=== PATIENT | female | born 1950 | race Caucasian/White ===

== ENCOUNTER 2020-07-09 09:06 | Outpatient (CLI) | payer MEDICARE, OTHER, SELFPAY ==
[2020-07-09 09:39] LABS: Basophils % 0.5 %; Eosinophils # 0.3 10^3/uL (0.0-0.8); Eosinophils % 2.8 %; Hemoglobin 10.1 g/dL (11.5-15.3); Lymphocytes # 1.5 10^3/uL (0.8-4.8); Lymphocytes % 17.3 %; Mean Corpuscular HGB Conc 29.7 g/dL (30.0-36.0); Mean Corpuscular Hemoglobin 27.5 pg (28.0-34.0); Mean Corpuscular Volume 92.6 fL (81-99); Mean Platelet Volume 8.9 fL (7.4-10.4); Monocytes # 0.9 10^3/uL (0.2-0.9); Monocytes % 10.1 %; Neutrophils # 6.09 10^3/uL (1.8-7.7); Neutrophils % 68.6 %; Nucleated Red Blood Cells % 0 %; Platelet Count 292 10^3/cmm (130-400); Red Blood Count 3.67 10^6/uL (4.1-5.3); Red Cell Distribution Width 16.4 % (12.1-15.1); White Blood Count 8.9 10^3/uL (4.0-10.0)
--- NOTE | 2020-07-09 13:15 | ONC CON_ITS ---
Dr. Kaufman New Patient Note Patient: Martha Bee Unit #: [id number]: 1950 Dicatated By: Zach Kaufman M.D.Date of Visit: Jul 09, 2020 Onc MED New Patient/Consult Referring Physician: Benjie ZAMORA History of Present Illness: Ms. Martha Bee, is a 70-year-old female with history of anemia diagnosed in 1972, at that time, as per patient, she was found to have low B12, she was given B12 supplement with that her anemia did resolve and in 1975 she underwent abdominal exploratory surgery for abdominal pain at [place], as per patient, she was given blood transfusion that time. Since then no history of anemia until recently, when on June 14, 2020 she went to see her PMD with progressive generalized weakness and fatigue, initially thought it was due to diabetes but her lab work-up done on that day showed hemoglobin 9.5 g hematocrit 29.9 g with MCV 88.7 white blood count 9.4 and platelets 263,000 iron studies were done which showed iron saturation 12% and total iron 44, both were low and ferritin was 49 TIBC 360 and her creatinine was 1.10 Patient denies any jaundice patient denies any urine or stool color changes patient denies any melena or hematochezia patient denies any hemoptysis or hematemesis, patient denies any night sweats peripheral lymphadenopathy or weight loss. Patient said she underwent follow-up colonoscopy about a year ago in [facility], as per patient it was unremarkable and never had a EGD done before. Patient denies any palpitation or chest pain at rest patient is on home oxygen. Patient denies any lightheadedness or dizziness but dyspnea on exertion and generalized weakness and fatigue. Past Medical History: Ms. Nietos medical history consists of chronic kidney disease (stage III), chronic obstructive pulmonary disease, congestive heart failure, hyperlipidemia, hypertension, insomnia, and type II diabetes. Past Surgical History: Ms. Nguyen surgical/procedural history consists of caesarean section, cholecystectomy, hernia repair - X 3, and STENT PLACEMENT. Medications: Albuterol Sulfate 1 Puff(s) (of (2.5 mg/3ml) 0.083%) Nebulization solution Inhalation q 6 hours PRN, Aspirin 1 Tablet (of 81 mg) Tablet, enteric coated Oral daily, Brilinta 1 Tablet (of 90 mg) Oral b.i.d., Coenzyme Q10 1 Capsule Oral daily, Furosemide 1 Tablet (of 40 mg) Oral daily, Gabapentin 1.5 Tablet (of 800 mg) Oral t.i.d., Glimepiride 1 Tablet (of 1 mg) Oral daily, Lantus 34 Units (of 100 Units/mL) Subcutaneous b.i.d., L-Cysteine 1 Tablet (of 500 mg) Oral daily, Lisinopril 0.5 Tablet (of 5 mg) Oral daily, Metoprolol Succinate ER 1 Tablet (of 25 mg) Tablet SR 24 HR Oral daily, Multivitamin 1 Tablet Oral daily, Rosuvastatin Calcium 1 Tablet (of 40 mg) Oral daily Allergies: No Known Allergies. Social History: Ms. Bee is . Ms. Bee has never smoked. She has no history of drinking. Family History: Ms. Bee's mother at age 79: Alzheimer's disease, and heart disease. Ms. Bee's father at age 84: hypertension, and type II diabetes. Ms. Bee has 1 brother who is alive: diabetes. She has 1 sister who is alive. Review Of Symptoms: Constitutional - Appetite is good and weight is stable. No fever, night sweats, or hot flashes. Energy level is poor, ENMT - Positive for sinus congestion/drainage. No mouth sores. No sore throat or difficulty swallowing, Hematologic/Lymphatic - Positive for easy bruising, Respiratory - Positive for shortness of breath. No cough. No pleuritic pain or hemoptysis, Cardiovascular - No angina pain. No palpitations, Gastrointestinal - No nausea or vomiting. No heartburn or acid reflux. No diarrhea. Positive for constipation. No blood in the stool or black stools, Genitourinary (F) - No dysuria or hematuria. Positive for urinary frequency. No urgency or incontinence, Musculoskeletal - No joint or bone pain, Neurologic - No headache or dizziness. Positive for numbness and tingling. No other focal neurologic symptoms, Psychiatric - No anxiety or depression. No insomnia. Vital Signs: Performed on Jul 09, 2020 11:27: 0, 31.09 (HIGH), 1.78 sq.m, 62.00 in, 98 %, 70 /min, 24 /min, 122/54 mm(hg), 98.0 F (LOW), and 170.0 lbs (HIGH). Performance Status: 1 - No physically strenuous activity, but ambulatory and able to carry out light or sedentary work (e.g. office work, light house work). (ECOG) Physical Examination: ENMT - No mouth sores, no thrush, no jaundice, no peripheral lymphadenopathy, Respiratory - Poor air entry otherwise clear, Cardiovascular - Regular rate and rhythm of heart, Abdomen - Soft, bowel sounds present, Extremities - 1+ edema bilaterally. Lab/Imaging: Most recent lab results are not available for this patient. Impression: Normocytic, hypochromic anemia etiology unclear could be multifactorial including combined iron deficiency/B12 deficiency due to malabsorption or chronic blood loss or anemia of chronic disease, patient has mild renal insufficiency, considering her age underlying myelodysplasia cannot be ruled out History of B12 deficiency anemia diagnosed in 1972, as per patient with B12 supplement it did resolve History of blood transfusion during abdominal surgery in 1975. Diabetes mellitus Diabetic neuropathy involving lower extremities On home oxygen Mild renal insufficiency Plan: Discussed with patient regarding her labs white blood count 8.9 hemoglobin 10.1 hematocrit 34 platelets 292,000 MCV 92.6 Clinically, patient is doing reasonably well with mild to moderate symptoms like generalized weakness and fatigue which is probably multifactorial, her initial anemia work-up done by her PMD showed iron deficiency. And B12 level was not checked, at this point we will consider checking her B12 level, if low consider supplement in the meantime we will prescribe her oral iron supplement which she will take twice a day in the meantime continue with [id number] multivitamin. We will also refer her for EGD to complete GI evaluation as colonoscopy done last year was unremarkable [place] [facility] [place] And then she will return to clinic in 1 month with CBC and iron studies and if there is no improvement in her iron stores, will consider parenteral iron. If she has persistent or progressive iron deficiency, despite of parenteral iron and EGD is normal, in that case we will consider capsule endoscopy to rule out small bowel AVMs, on the other hand if iron studies improve and she has persistent anemia, will consider bone marrow evaluation to rule out myelodysplasia or other marrow abnormality. Also check TSH as hypothyroidism can cause anemia as well as generalized weakness and fatigue. Signed By: Zach Kaufman M.D. <<Signature on File>>
[2020-07-10 09:35] LABS: Vitamin B12 1583 pg/mL (232-1245)
== END 2020-07-09 09:07 | disposition home or self-care (01) ==
LOC: ONCMED 09:07
PROVIDERS: PCP Nurse Practitioner Family; Visit Provider Internal Medicine Hematology & Oncology
DX: D50.9 Iron deficiency anemia, unspecified (principal); E11.9 Type 2 diabetes mellitus without complications; N18.3 Chronic kidney disease, stage 3 (moderate); E78.5 Hyperlipidemia, unspecified; I50.9 Heart failure, unspecified; I11.0 Hypertensive heart disease with heart failure; J44.9 Chronic obstructive pulmonary disease, unspecified
CPT/HCPCS: 82607; 84443; 85025; 99203

== ENCOUNTER 2020-08-20 11:05 | Outpatient (CLI) | payer MEDICARE, OTHER, SELFPAY ==
[2020-08-20 11:31] LABS: Basophils # 0.1 10^3/uL (0.0-0.1); Basophils % 0.4 %; Eosinophils # 0.3 10^3/uL (0.0-0.8); Eosinophils % 2.2 %; Hematocrit 37.7 % (37.0-47.0); Hemoglobin 11.1 g/dL (11.5-15.3); Lymphocytes # 2.3 10^3/uL (0.8-4.8); Lymphocytes % 17.9 %; Mean Corpuscular HGB Conc 29.4 g/dL (30.0-36.0); Mean Corpuscular Hemoglobin 27.7 pg (28.0-34.0); Mean Platelet Volume 9.2 fL (7.4-10.4); Monocytes % 7.9 %; Neutrophils # 9.15 10^3/uL (1.8-7.7); Neutrophils % 70.9 %; Nucleated Red Blood Cells % 0 %; Platelet Count 291 10^3/cmm (130-400); Red Blood Count 4.01 10^6/uL (4.1-5.3); Red Cell Distribution Width 15.2 % (12.1-15.1); White Blood Count 12.9 10^3/uL (4.0-10.0)
[2020-08-20 11:53] LABS: Ferritin 34 ng/mL (15-150); Iron 45 ug/dL (37-145); Percent Saturation 11.7 % (20-50); Total Iron Binding Capacity 382 mcg/dl; Unsaturated Iron Binding 337 ug/dL (112-347)
--- NOTE | 2020-08-20 15:55 | ONC FU_ITS ---
Dr. Kaufman follow up note Patient: Matrha Bee Unit #: [id number]: 1950 Dicatated By: Zach Kaufman M.D.Date of Visit:Aug 20, 2020 Onc Med Follow-up/Prog Note History of Present Illness: Ms. Martha Bee, is a 70-year-old female with history of anemia diagnosed in 1972, at that time, as per patient, she was found to have low B12, she was given B12 supplement with that her anemia did resolve and in 1975 she underwent abdominal exploratory surgery for abdominal pain at [place], as per patient, she was given blood transfusion that time. Since then no history of anemia until recently, when on June 14, 2020 she went to see her PMD with progressive generalized weakness and fatigue, initially thought it was due to diabetes but her lab work-up done on that day showed hemoglobin 9.5 g hematocrit 29.9 g with MCV 88.7 white blood count 9.4 and platelets 263,000 iron studies were done which showed iron saturation 12% and total iron 44, both were low and ferritin was 49 TIBC 360 and her creatinine was 1.10 Patient denies any jaundice patient denies any urine or stool color changes patient denies any melena or hematochezia patient denies any hemoptysis or hematemesis, patient denies any night sweats peripheral lymphadenopathy or weight loss. Patient said she underwent follow-up colonoscopy about a year ago in [facility], as per patient it was unremarkable and never had a EGD done before. Patient denies any palpitation or chest pain at rest patient is on home oxygen. Patient denies any lightheadedness or dizziness but dyspnea on exertion and generalized weakness and fatigue. Came for follow-up, denies any specific complaints, no fever chills, no nausea or vomiting, no diarrhea constipation, overall strength is improving, more energetic, tolerating oral iron well., She is on home oxygen. Medications: Albuterol Sulfate 1 Puff(s) (of (2.5 mg/3ml) 0.083%) Nebulization solution Inhalation q 6 hours PRN, Aspirin 1 Tablet (of 81 mg) Tablet, enteric coated Oral daily, Brilinta 1 Tablet (of 90 mg) Oral b.i.d., Cholecalciferol 1 (1.25 mg ) Tablet Oral q 1 week, Coenzyme Q10 1 Capsule Oral daily, Furosemide 1 Tablet (of 40 mg) Oral daily, Gabapentin 1.5 Tablet (of 800 mg) Oral t.i.d., Glimepiride 1 Tablet (of 1 mg) Oral daily, Lantus 34 Units (of 100 Units/mL) Subcutaneous b.i.d., L-Cysteine 1 Tablet (of 500 mg) Oral daily, Lisinopril 0.5 Tablet (of 5 mg) Oral daily, Metoprolol Succinate ER 1 Tablet (of 25 mg) Tablet SR 24 HR Oral daily, Multivitamin 1 Tablet Oral daily, Rosuvastatin Calcium 1 Tablet (of 40 mg) Oral daily Allergies: No Known Allergies. Review of Systems: Constitutional - Appetite is good and weight is stable. No fever, night sweats, or hot flashes. Energy level is poor, ENMT - Positive for sinus congestion/drainage. No mouth sores. No sore throat or difficulty swallowing, Hematologic/Lymphatic - Positive for easy bruising, Respiratory - Positive for shortness of breath. No cough. No pleuritic pain or hemoptysis, Cardiovascular - No angina pain. No palpitations, Gastrointestinal - No nausea or vomiting. No heartburn or acid reflux. No diarrhea. Positive for constipation. No blood in the stool or black stools, Genitourinary (F) - No dysuria or hematuria. Positive for urinary frequency. No urgency or incontinence, Musculoskeletal - No joint or bone pain, Neurologic - No headache or dizziness. Positive for numbness and tingling. No other focal neurologic symptoms, Psychiatric - No anxiety or depression. No insomnia. Vital Signs: Performed on Aug 20, 2020 12:26 Height - 62.00 in Weight - 171.6 lbs (HIGH) BSA - 1.79 sq.m BMI - 31.39 (HIGH) Temperature - 97.5 F (LOW) Pulse - 83 /min Respiration - 16 /min BP - 150/63 mm(hg) (HIGH) O2 Sat - 98 % Pain - 0 Performance Status: 1 - No physically strenuous activity, but ambulatory and able to carry out light or sedentary work (e.g. office work, light house work). (ECOG) Physical Examination: ENMT - No mouth sores, no thrush, no jaundice, Respiratory - Lungs are clear to auscultation, Cardiovascular - Regular rate and rhythm of heart, Abdomen - Soft, bowel sounds present, Extremities - No visible edema. Lab/Imaging: Test performed on Jul 09, 2020 09:20 TSH 0.50 uIU/mL Vitamin B12 1583 pg/mL WBC 8.9 10 3/uL RBC 3.67 10 6/uL HGB 10.1 g/dL HCT 34.0 % MCV 92.6 fL MCH 27.5 pg MCHC 29.7 g/dL RDW 16.4 % Platelet Count 292 10 3/cmm MPV 8.9 fL Neutrophils 6.09 10 3/uL Lymphocytes 1.5 10 3/uL Monocytes 0.9 10 3/uL Eosinophils 0.3 10 3/uL Basophils 0.0 10 3/uL Neutrophil % 68.6 % Lymphocyte % 17.3 % Monocyte % 10.1 % Eosinophil % 2.8 % Basophils % 0.5 % NRBC % 0 % Impression: Normocytic, hypochromic anemia etiology unclear could be multifactorial including combined iron deficiency/B12 deficiency due to malabsorption or chronic blood loss or anemia of chronic disease, patient has mild renal insufficiency, considering her age underlying myelodysplasia cannot be ruled out History of B12 deficiency anemia diagnosed in 1972, as per patient with B12 supplement it did resolve History of blood transfusion during abdominal surgery in 1975. Diabetes mellitus Diabetic neuropathy involving lower extremities On home oxygen Mild renal insufficiency Plan: Discussed with patient regarding her labs white blood count 12.9 hemoglobin 11.1 hematocrit 37.7 platelets 291,000, ferritin 34, iron 45, B12 1583, TSH 0.50 Clinically, patient is doing well, more energetic, no new signs symptoms, tolerating oral iron well, her follow-up labs shows improvement in her hemoglobin today is 11.1 g compared to 10.1 g on July 09, 2020, her iron stores is also stable, at this point we will continue to monitor her blood counts and she will continue with oral iron and return to clinic in 2 months with CBC and iron studies. Patient had a EGD and colonoscopy done on August 14, 2020 in [facility], as per patient it was unremarkable except couple of polyps were seen in the colon and a biopsy was done and she has follow-up appointment with her physician on September 26, 2020 in the meantime we will obtain records from [facility] and review. Signed By: Zach Kaufman M.D. <<Signature on File>>
== END 2020-08-20 11:06 | disposition home or self-care (01) ==
LOC: ONCMED 11:09
PROVIDERS: PCP Nurse Practitioner Family; Visit Provider Internal Medicine Hematology & Oncology
DX: D50.9 Iron deficiency anemia, unspecified (principal); Z86.39 Personal history of other endocrine, nutritional and metabolic disease; E11.42 Type 2 diabetes mellitus with diabetic polyneuropathy; Z99.81 Dependence on supplemental oxygen; N28.9 Disorder of kidney and ureter, unspecified; Z79.4 Long term (current) use of insulin
CPT/HCPCS: 36415; 82728; 83540; 83550; 85025; G0463

== ENCOUNTER → 2020-10-03 11:10 | Outpatient (BNVA) | payer MEDICARE, OTHER, SELFPAY | PROVIDERS: PCP Nurse Practitioner Family; Visit Provider Nurse Practitioner Women's Health | DX: N95.0 Postmenopausal bleeding (principal) | CPT/HCPCS: 88175 ==

== ENCOUNTER → 2020-10-05 10:48 | Outpatient (BNVA) | payer MEDICARE, OTHER, SELFPAY | PROVIDERS: PCP Nurse Practitioner Family; Visit Provider Nurse Practitioner Women's Health | DX: N95.0 Postmenopausal bleeding (principal) | CPT/HCPCS: 76830 ==

== ENCOUNTER 2020-10-24 11:11 | Outpatient (CLI) | payer MEDICARE, OTHER, SELFPAY ==
[2020-10-24 12:09] LABS: Basophils % 0.4 %; Eosinophils # 0.1 10^3/uL (0.0-0.8); Eosinophils % 1.2 %; Hematocrit 40.7 % (37.0-47.0); Hemoglobin 12.1 g/dL (11.5-15.3); Lymphocytes # 2.2 10^3/uL (0.8-4.8); Mean Corpuscular HGB Conc 29.7 g/dL (30.0-36.0); Mean Corpuscular Hemoglobin 27.3 pg (28.0-34.0); Mean Corpuscular Volume 91.9 fL (81-99); Mean Platelet Volume 9.1 fL (7.4-10.4); Monocytes # 0.7 10^3/uL (0.2-0.9); Monocytes % 7.1 %; Neutrophils % 68.8 %; Nucleated Red Blood Cells % 0 %; Platelet Count 324 10^3/cmm (130-400); Red Blood Count 4.43 10^6/uL (4.1-5.3); Red Cell Distribution Width 15.1 % (12.1-15.1); White Blood Count 10.2 10^3/uL (4.0-10.0)
[2020-10-24 12:47] LABS: Ferritin 71 ng/mL (15-150); Iron 48 ug/dL (37-145); Percent Saturation 12.7 % (20-50); Total Iron Binding Capacity 377 mcg/dl; Unsaturated Iron Binding 329 ug/dL (112-347)
--- NOTE | 2020-10-25 11:37 | ONC FU_ITS ---
Dr. Kaufman follow up note Patient: Martha Bee Unit #: [id number]: 1950 Dicatated By: Zach Kaufman M.D.Date of Visit:Oct 24, 2020 Onc Med Follow-up/Prog Note History of Present Illness: Ms. Martha Bee, is a 70-year-old female with history of anemia diagnosed in 1972, at that time, as per patient, she was found to have low B12, she was given B12 supplement with that her anemia did resolve and in 1975 she underwent abdominal exploratory surgery for abdominal pain at [place], as per patient, she was given blood transfusion that time. Since then no history of anemia until recently, when on June 14, 2020 she went to see her PMD with progressive generalized weakness and fatigue, initially thought it was due to diabetes but her lab work-up done on that day showed hemoglobin 9.5 g hematocrit 29.9 g with MCV 88.7 white blood count 9.4 and platelets 263,000 iron studies were done which showed iron saturation 12% and total iron 44, both were low and ferritin was 49 TIBC 360 and her creatinine was 1.10 Patient denies any jaundice patient denies any urine or stool color changes patient denies any melena or hematochezia patient denies any hemoptysis or hematemesis, patient denies any night sweats peripheral lymphadenopathy or weight loss. Patient said she underwent follow-up colonoscopy about a year ago in [facility], as per patient it was unremarkable and never had a EGD done before. Patient denies any palpitation or chest pain at rest patient is on home oxygen. Patient denies any lightheadedness or dizziness but dyspnea on exertion and generalized weakness and fatigue. Came for follow-up, denies any specific complaints, no fever chills, no nausea or vomiting, no diarrhea constipation as per patient since her last visit, she got infected with COVID-19 but now recovering well., Tolerating oral iron well, no more melena or hematochezia no hemoptysis or hematemesis, no jaundice, no shortness of breath or palpitation at rest but she is on home oxygen. Medications: Albuterol Sulfate 1 Puff(s) (of (2.5 mg/3ml) 0.083%) Nebulization solution Inhalation q 6 hours PRN, Aspirin 1 Tablet (of 81 mg) Tablet, enteric coated Oral daily, Brilinta 1 Tablet (of 90 mg) Oral b.i.d., Cholecalciferol 1 (1.25 mg ) Tablet Oral q 1 week, Coenzyme Q10 1 Capsule Oral daily, Furosemide 1 Tablet (of 40 mg) Oral daily, Gabapentin 1.5 Tablet (of 800 mg) Oral t.i.d., Glimepiride 1 Tablet (of 1 mg) Oral daily, Lantus 34 Units (of 100 Units/mL) Subcutaneous b.i.d., L-Cysteine 1 Tablet (of 500 mg) Oral daily, Lisinopril 0.5 Tablet (of 5 mg) Oral daily, Metoprolol Succinate ER 1 Tablet (of 25 mg) Tablet SR 24 HR Oral daily, Multivitamin 1 Tablet Oral daily, Rosuvastatin Calcium 1 Tablet (of 40 mg) Oral daily Allergies: No Known Allergies. Review of Systems: Review of Systems is not available for this patient. Vital Signs: Performed on Oct 24, 2020 13:16 Height - 62.00 in Weight - 169.3 lbs (LOW) BSA - 1.78 sq.m BMI - 30.97 (HIGH) Temperature - 98.6 F Pulse - 76 /min Respiration - 16 /min BP - 143/67 mm(hg) (HIGH) O2 Sat - 97 % Pain - 0 Performance Status: 1 - No physically strenuous activity, but ambulatory and able to carry out light or sedentary work (e.g. office work, light house work). (ECOG) Physical Examination: ENMT - No mouth sores, no thrush, no jaundice, Respiratory - Poor air entry otherwise clear to auscultation, Cardiovascular - Regular rate and rhythm of heart, Abdomen - Soft, bowel sounds present, Extremities - No visible edema. Lab/Imaging: Test performed on Aug 20, 2020 11:07 Ferritin 34 ng/mL Iron 45 mcg/dL Iron Binding Capacity (TIBC) 382 mcg/dl % Iron Saturation 11.7 % UIBC 337 mcg/dL WBC 12.9 10 3/uL RBC 4.01 10 6/uL HGB 11.1 g/dL HCT 37.7 % MCV 94.0 fL MCH 27.7 pg MCHC 29.4 g/dL RDW 15.2 % Platelet Count 291 10 3/cmm MPV 9.2 fL Neutrophils 9.15 10 3/uL Lymphocytes 2.3 10 3/uL Monocytes 1.0 10 3/uL Eosinophils 0.3 10 3/uL Basophils 0.1 10 3/uL Neutrophil % 70.9 % Lymphocyte % 17.9 % Monocyte % 7.9 % Eosinophil % 2.2 % Basophils % 0.4 % NRBC % 0 % Test performed on Jul 09, 2020 09:20 TSH 0.50 uIU/mL Vitamin B12 1583 pg/mL Impression: Iron deficiency anemia, other possibilities including, considering her age underlying myelodysplasia or anemia of chronic disease cannot be ruled out , Responded well to oral iron History of B12 deficiency anemia diagnosed in 1972, as per patient with B12 supplement it did resolve History of blood transfusion during abdominal surgery in 1975. Diabetes mellitus Diabetic neuropathy involving lower extremities On home oxygen Mild renal insufficiency Plan: Discussed with patient regarding her labs white blood count 10.2 hemoglobin 12.1 hematocrit 40.7 platelets 324,000 iron studies shows iron saturation 12.7% ferritin 71 compared to 34 on August 20, 2020 iron 48, TIBC 377 Clinically, patient doing well, tolerating oral iron well, her follow-up CBC shows significant improvement in her hemoglobin, now her iron deficiency anemia has resolved, but iron studies shows persistent iron deficiency but with some improvement, at this point will increase her oral iron supplement to twice a day and then she will return to clinic in 2 months with CBC and iron studies Mild leukocytosis, with a normal differential, etiology unclear could be due to, medication or subclinical inflammation/infection but follow-up CBC shows improvement so we will continue to monitor if no improvement, will consider flow cytometry to rule out underlying myeloproliferative disorder Signed By: Zach Kaufman M.D. <<Signature on File>>
== END 2020-10-24 11:12 | disposition home or self-care (01) ==
PROVIDERS: PCP Nurse Practitioner Family; Visit Provider Internal Medicine Hematology & Oncology
DX: D50.9 Iron deficiency anemia, unspecified (principal); D72.829 Elevated white blood cell count, unspecified; E11.40 Type 2 diabetes mellitus with diabetic neuropathy, unspecified; N28.9 Disorder of kidney and ureter, unspecified; Z99.81 Dependence on supplemental oxygen
CPT/HCPCS: 36415; 82728; 83540; 83550; 85025; G0463

== ENCOUNTER 2020-12-12 11:03 | Outpatient (CLI) | payer MEDICARE, OTHER, SELFPAY ==
[2020-12-12 11:25] LABS: Basophils % 0.4 %; Eosinophils # 0.2 10^3/uL (0.0-0.8); Eosinophils % 1.5 %; Hematocrit 41.9 % (37.0-47.0); Hemoglobin 12.5 g/dL (11.5-15.3); Lymphocytes # 2.8 10^3/uL (0.8-4.8); Lymphocytes % 26.3 %; Mean Corpuscular HGB Conc 29.8 g/dL (30.0-36.0); Mean Corpuscular Hemoglobin 27.6 pg (28.0-34.0); Mean Corpuscular Volume 92.5 fL (81-99); Mean Platelet Volume 9.1 fL (7.4-10.4); Monocytes # 0.9 10^3/uL (0.2-0.9); Neutrophils # 6.52 10^3/uL (1.8-7.7); Neutrophils % 62.5 %; Nucleated Red Blood Cells % 0 %; Platelet Count 257 10^3/cmm (130-400); Red Blood Count 4.53 10^6/uL (4.1-5.3); Red Cell Distribution Width 16.3 % (12.1-15.1); White Blood Count 10.4 10^3/uL (4.0-10.0)
[2020-12-12 11:45] LABS: Ferritin 37 ng/mL (15-150); Iron 68 ug/dL (37-145); Percent Saturation 17.7 % (20-50); Total Iron Binding Capacity 384 mcg/dl; Unsaturated Iron Binding 316 ug/dL (112-347)
--- NOTE | 2020-12-17 22:22 | ONC FU_ITS ---
Jose Martinez Patient Note Patient: Martha Bee Unit #: [id number]: 1950 Dictated By: Amador ChaudhryDate of Visit: Dec 12, 2020 Onc MED Follow-Up/Prog Note Chief Complaint: Anemia History of Present Illness: Ms. Bee is a 70-year-old female with history of anemia diagnosed in 1972. She reports that at that time, she was found to have low B12. She was given B12 supplement and with that her anemia did resolve. In 1975 she underwent abdominal exploratory surgery for abdominal pain at [place]. She reports that she was given a blood transfusion that time. Since then, she does not report any history of anemia until June 14, 2020. She went to see her PMD with progressive generalized weakness and fatigue. She states she initially thought it was due to diabetes but her lab work-up done on that day showed hemoglobin 9.5 g hematocrit 29.9 g with MCV 88.7 white blood count 9.4 and platelets 263,000 iron studies were done which showed iron saturation 12% and total iron 44, both were low and ferritin was 49 TIBC 360 and her creatinine was 1.10. On diagnosis, Mrs Bee denied any jaundice, urine or stool color changes, melena or hematochezia, hemoptysis or hematemesis. She also denied any night sweats, peripheral lymphadenopathy or weight loss. Patient said she underwent follow-up colonoscopy about a year ago in [facility], as per patient it was unremarkable and never had a EGD done before. Mrs. Bee was seen on October 24, [address] Kaufman for iron deficiency anemia. Her iron saturation at that time was 12.7% and ferritin was 71 compared to 31 on August 20, 2020. She was on oral iron supplements at that time. Her hemoglobin had improved as well and she was tolerating oral iron well. It was noted that she did have mild leukocytosis with a normal differential with unknown etiology. Dr. Kaufman recommended following the CBC as long as it was showing improvement if no improvement, we would need to consider flow cytometry to rule out underlying myeloproliferative disorder. Ms. Bee is here today for follow-up. She states overall she feels she is doing good. She states her breathing is about the same as always it is no worse. She continues to use home oxygen. She states she is taking 2 iron tablets daily and seems to be tolerating this well. She states her stools are firm and hard at times but that is improved with Metamucil. She states they are black from the iron supplements. She reports that she did have Covid and was diagnosed on 10/11/2020. She states that she did not require hospitalization and tolerated it relatively well. She did have follow-up with cardiology 2 weeks ago. She denies any chest pain or palpitations. She denies any cough. She has had no hemoptysis. She denies any fever or chills. She is had no night sweats. She denies any recent weight loss. She states overall she is doing well. She denies any bright red blood with stools. She had no other evidence of bleeding. Her ECOG is 1. Past Medical History: Chronic kidney disease (stage III) Chronic obstructive pulmonary disease Congestive heart failure Hyperlipidemia Hypertension Insomnia Type II diabetes COVID 19 + in 2019 Past Surgical History: Caesarean section Cholecystectomy Hernia repair - X 3 STENT PLACEMENT Allergies: No Known Allergies. Medications: Albuterol Sulfate 1 Puff(s) (of (2.5 mg/3ml) 0.083%) Nebulization solution Inhalation q 6 hours PRN Aspirin 1 Tablet (of 81 mg) Tablet, enteric coated Oral daily Brilinta 1 Tablet (of 90 mg) Oral b.i.d. Cholecalciferol 1 (1.25 mg ) Tablet Oral q 1 week Coenzyme Q10 1 Capsule Oral daily Furosemide 1 Tablet (of 40 mg) Oral daily Gabapentin 1.5 Tablet (of 800 mg) Oral t.i.d. Glimepiride 1 Tablet (of 1 mg) Oral daily Lantus 34 Units (of 100 Units/mL) Subcutaneous b.i.d. L-Cysteine 1 Tablet (of 500 mg) Oral daily Lisinopril 0.5 Tablet (of 5 mg) Oral daily Metoprolol Succinate ER 1 Tablet (of 25 mg) Tablet SR 24 HR Oral daily Multivitamin 1 Tablet Oral daily Rosuvastatin Calcium 1 Tablet (of 40 mg) Oral daily Family History: Ms. Bee's mother at age 79: Alzheimer's disease, and heart disease. Ms. Bee's father at age 84: hypertension, and type II diabetes. Ms. Bee has 1 brother who is alive: diabetes. She has 1 sister who is alive. Social History: Ms. Bee is . Ms. Bee has never smoked. She has no history of drinking. Review Of Symptoms: Constitutional Denies fevers, chills, night sweats, excessive fatigue or weight loss. Allergic/Immunologic No reactions. Eyes Denies significant visual changes. No diplopia. No amaurosis. ENMT Denies changes in hearing, sore throat, mouth sores, difficulty or changes in swallowing ability, and/or sinus drainage. Hematologic/Lymphatic Denies easy bruising or bleeding. The patient denies any tender or palpable lymph nodes. Respiratory Denies dyspnea on exertion, chest pain, cough or hemoptysis. Denies orthopnea. Cardiovascular Denies anginal chest pain, palpitations or orthopnea. Gastrointestinal Denies nausea, vomiting, diarrhea, GI bleeding. Denies change in bowel habits and/or stool color, no heartburn or early satiety. She states she has intermittent firm/hard stools but is improved with use of Metamucil. She does have black stools from using oral iron supplements. Genitourinary (F) No hematuria, hesitancy, incontinence, vaginal bleeding, discharge or other problems with urination. Musculoskeletal Denies joint pain, swelling or redness. No decreased range of motion. Integumentary Denies chronic rashes, inflammation, ulcerations or skin changes. Neurologic Denies headache, blurred vision, and no areas of focal weakness or numbness. Normal gait. No sensory problems. Psychiatric Denies insomnia, depression, braulio or mood swings. Vital Signs: Performed on Dec 12, 2020 12:34 Height - 62.00 in Weight - 175.6 lbs (HIGH) BSA - 1.81 sq.m BMI - 32.12 (HIGH) Temperature - 98.2 F (LOW) Pulse - 88 /min Respiration - 16 /min BP - 144/63 mm(hg) (HIGH) O2 Sat - 94 % (LOW) Pain - 0,1 - No physically strenuous activity, but ambulatory and able to carry out light or sedentary work (e.g. office work, light house work). (ECOG) Physical Examination: Constitutional Alert, oriented, no acute distress. Skin pink, warm and dry. Head Normocephalic; atraumatic. Eyes Conjunctivae and sclerae are clear and without icterus. Pupils are reactive and equal. Neck Supple without masses or thyromegaly. No jugular venous distension. Hematologic/Lymphatic No petechiae or purpura. No tender or palpable lymph nodes in the cervical or supraclavicular areas. Respiratory Lungs are clear to auscultation without rhonchi or wheezing. Cardiovascular Regular rate and rhythm of heart without murmurs,clicks, gallops or rubs. Abdomen Non-tender, non-distended, no masses or ascites. Good bowel sounds noted in all quads. No guarding or rebound tenderness. No pulsatile masses. Back/Spine Non-tender to palpation. Extremities No visible deformities, no cyanosis, clubbing or edema. Musculoskeletal No tenderness or swelling, normal range of motion without obvious weakness. Integumentary No rashes or lesions. Neurologic No sensory or motor deficits, normal cerebellar function, normal gait. Psychiatric Alert and oriented times three. Coherent speech. Verbalizes understanding of our discussions today. Laboratory:Test performed on Dec 12, 2020 11:14 Ferritin 37 ng/mL Iron 68 mcg/dL Iron Binding Capacity (TIBC) 384 mcg/dl % Iron Saturation 17.7 % UIBC 316 mcg/dL WBC 10.4 10 3/uL RBC 4.53 10 6/uL HGB 12.5 g/dL HCT 41.9 % MCV 92.5 fL MCH 27.6 pg MCHC 29.8 g/dL RDW 16.3 % Platelet Count 257 10 3/cmm MPV 9.1 fL Neutrophils 6.52 10 3/uL Lymphocytes 2.8 10 3/uL Monocytes 0.9 10 3/uL Eosinophils 0.2 10 3/uL Basophils 0.0 10 3/uL Neutrophil % 62.5 % Lymphocyte % 26.3 % Monocyte % 9.0 % Eosinophil % 1.5 % Basophils % 0.4 % NRBC % 0 % Impression: Iron deficiency anemia, other possibilities including, considering her age underlying myelodysplasia or anemia of chronic disease cannot be ruled out , Responded well to oral iron History of B12 deficiency anemia diagnosed in 1972, as per patient with B12 supplement it did resolve History of blood transfusion during abdominal surgery in 1975. Diabetes mellitus Diabetic neuropathy involving lower extremities On home oxygen Mild renal insufficiency Plan: PROBLEMS ADDRESSED TODAY 1. Iron deficiency anemia A. Today's labs reviewed in detail and discussed with Ms. Bee and a copy was given to her. WBC 10.4, hemoglobin 12.5, platelets 257,000 ANC 6520 iron saturation is improved at 17.7% was 12.7% on March 24, 2021. Her ferritin is 37 iron is 68 which is improved from 48 in October 2020. B. We will have her continue her iron tablets at 2 daily, but she can try increasing to 3 daily if she would like, but I feel that this is unlikely for her to tolerate it as she is already having firm/hard stools although currently they are resolved with Metamucil. C. We will plan to have her return in 1 month for follow-up with CBC CMP and iron studies. D. Mrs. Bee has been encouraged to contact us in the interim should questions or problems arise. Signed By: Amador Chaudhry-, [facility] Zach Kaufman MD <<Signature on File>>
== END 2020-12-12 11:04 | disposition home or self-care (01) ==
LOC: ONCMED 11:05
PROVIDERS: PCP Nurse Practitioner Family; Visit Provider Nurse Practitioner
DX: D50.9 Iron deficiency anemia, unspecified (principal); E11.40 Type 2 diabetes mellitus with diabetic neuropathy, unspecified; Z99.81 Dependence on supplemental oxygen; N28.9 Disorder of kidney and ureter, unspecified
CPT/HCPCS: 82728; 83540; 83550; 85025; 99214

== ENCOUNTER 2021-01-14 12:44 | Outpatient (CLI) | payer MEDICARE, OTHER, SELFPAY ==
[2021-01-14 13:38] LABS: Basophils % 0.5 %; Eosinophils # 0.4 10^3/uL (0.0-0.8); Eosinophils % 4.8 %; Hemoglobin 12.9 g/dL (11.5-15.3); Lymphocytes # 2.3 10^3/uL (0.8-4.8); Mean Corpuscular Hemoglobin 28.9 pg (28.0-34.0); Mean Corpuscular Volume 96.2 fL (81-99); Mean Platelet Volume 9.5 fL (7.4-10.4); Monocytes # 0.9 10^3/uL (0.2-0.9); Monocytes % 10.2 %; Neutrophils # 4.76 10^3/uL (1.8-7.7); Neutrophils % 57.1 %; Nucleated Red Blood Cells % 0 %; Platelet Count 262 10^3/cmm (130-400); Red Blood Count 4.47 10^6/uL (4.1-5.3); Red Cell Distribution Width 15.7 % (12.1-15.1); White Blood Count 8.3 10^3/uL (4.0-10.0)
[2021-01-14 14:21] LABS: Alanine Aminotransferase 22 U/L (0-33); Albumin Level 4.4 g/dL (3.5-5.2); Alkaline Phosphatase 74 IU/L (35-105); Anion Gap 13.7 (5-19); Aspartate Amino Transferase 18 U/L (0-32); Blood Urea Nitrogen 34 mg/dL (8-23); Calcium 11.2 mg/dL (8.5-10.5); Carbon Dioxide 37 mmol/L (22-29); Chloride 94 mmol/L (98-107); Ferritin 72 ng/mL (15-150); Globulin 3.6 g/dL (1.3-4.6); Glomerular Filtration Rate 71.3 mL/min (90-130); Glucose 127 mg/dL (65-115); Iron 52 ug/dL (37-145); Osmolality Calculated 301 mOsm/kg (285-295); Percent Saturation 15.2 % (20-50); Potassium 3.7 mmol/L (3.5-5.1); Sodium 141 mmol/L (136-145); Total Bilirubin 0.4 mg/dL (0.15-1.2); Total Iron Binding Capacity 340 mcg/dl; Unsaturated Iron Binding 288 ug/dL (112-347)
--- NOTE | 2021-01-14 15:22 | ONC FU_ITS ---
Dr. Kaufman follow up note Patient: Martha Bee Unit #: [id number]: 1950 Dicatated By: Zach Kaufman M.D.Date of Visit:Jan 14, 2021 Onc Med Follow-up/Prog Note History of Present Illness: Ms. Bee is a 70-year-old female with history of anemia diagnosed in 1972. She reports that at that time, she was found to have low B12. She was given B12 supplement and with that her anemia did resolve. In 1975 she underwent abdominal exploratory surgery for abdominal pain at [place]. She reports that she was given a blood transfusion that time. Since then, she does not report any history of anemia until June 14, 2020. She went to see her PMD with progressive generalized weakness and fatigue. She states she initially thought it was due to diabetes but her lab work-up done on that day showed hemoglobin 9.5 g hematocrit 29.9 g with MCV 88.7 white blood count 9.4 and platelets 263,000 iron studies were done which showed iron saturation 12% and total iron 44, both were low and ferritin was 49 TIBC 360 and her creatinine was 1.10. On diagnosis, Mrs Bee denied any jaundice, urine or stool color changes, melena or hematochezia, hemoptysis or hematemesis. She also denied any night sweats, peripheral lymphadenopathy or weight loss. Patient said she underwent follow-up colonoscopy about a year ago in [facility], as per patient it was unremarkable and never had a EGD done before. Mrs. Bee was seen on October 24, 2020 for iron deficiency anemia. Her iron saturation at that time was 12.7% and ferritin was 71 compared to 31 on August 20, 2020. She was on oral iron supplements at that time. Her hemoglobin had improved as well and she was tolerating oral iron well. Came for follow-up, denies any specific complaints, no fever chills, no nausea or vomiting, no diarrhea constipation, tolerating oral iron well. Medications: Albuterol Sulfate 1 Puff(s) (of (2.5 mg/3ml) 0.083%) Nebulization solution Inhalation q 6 hours PRN, Aspirin 1 Tablet (of 81 mg) Tablet, enteric coated Oral daily, Brilinta 1 Tablet (of 90 mg) Oral b.i.d., Cholecalciferol 1 (1.25 mg ) Tablet Oral q 1 week, Coenzyme Q10 1 Capsule Oral daily, Furosemide 1 Tablet (of 40 mg) Oral daily, Gabapentin 1.5 Tablet (of 800 mg) Oral t.i.d., Glimepiride 1 Tablet (of 1 mg) Oral daily, Lantus 34 Units (of 100 Units/mL) Subcutaneous b.i.d., L-Cysteine 1 Tablet (of 500 mg) Oral daily, Lisinopril 0.5 Tablet (of 5 mg) Oral daily, Metoprolol Succinate ER 1 Tablet (of 25 mg) Tablet SR 24 HR Oral daily, Multivitamin 1 Tablet Oral daily, Rosuvastatin Calcium 1 Tablet (of 40 mg) Oral daily Allergies: No Known Allergies. Review of Systems: Review of Systems is not available for this patient. Vital Signs: Performed on Jan 14, 2021 14:50 Height - 62.00 in Weight - 178 lbs (HIGH) BSA - 1.82 sq.m BMI - 32.56 (HIGH) Temperature - 98.0 F (LOW) Pulse - 80 /min Respiration - 18 /min BP - 149/54 mm(hg) (HIGH) O2 Sat - 94 % (LOW) Pain - 6 Performance Status: 1 - No physically strenuous activity, but ambulatory and able to carry out light or sedentary work (e.g. office work, light house work). (ECOG) Physical Examination: ENMT - No mouth sores, no thrush, no jaundice, Respiratory - Lungs are clear to auscultation, Cardiovascular - Regular rate and rhythm of heart, Abdomen - Soft, bowel sounds present, Extremities - No visible edema. Lab/Imaging: Test performed on Dec 12, 2020 11:14 Ferritin 37 ng/mL Iron 68 mcg/dL Iron Binding Capacity (TIBC) 384 mcg/dl % Iron Saturation 17.7 % UIBC 316 mcg/dL WBC 10.4 10 3/uL RBC 4.53 10 6/uL HGB 12.5 g/dL HCT 41.9 % MCV 92.5 fL MCH 27.6 pg MCHC 29.8 g/dL RDW 16.3 % Platelet Count 257 10 3/cmm MPV 9.1 fL Neutrophils 6.52 10 3/uL Lymphocytes 2.8 10 3/uL Monocytes 0.9 10 3/uL Eosinophils 0.2 10 3/uL Basophils 0.0 10 3/uL Neutrophil % 62.5 % Lymphocyte % 26.3 % Monocyte % 9.0 % Eosinophil % 1.5 % Basophils % 0.4 % NRBC % 0 % Impression: Iron deficiency anemia, other possibilities including, considering her age underlying myelodysplasia or anemia of chronic disease cannot be ruled out , Responded well to oral iron History of B12 deficiency anemia diagnosed in 1972, as per patient with B12 supplement it did resolve History of blood transfusion during abdominal surgery in 1975. Diabetes mellitus Diabetic neuropathy involving lower extremities On home oxygen Mild renal insufficiency Plan: Discussed with patient regarding her labs white blood count 8.3 compared to 10.4 earlier hemoglobin 12.9 g compared to 12.5 g previously hematocrit 43 platelets 262,000 CMP within normal limit except calcium 11.2 normal being less than 10.5 alk phos 74, iron studies shows iron saturation 15.2% ferritin 72 compared to 37 on December 12, 2020 ,iron 62 Clinically, patient is doing well, her follow-up labs shows hemoglobin in normal range and improving along with iron stores, patient is tolerating oral iron well, will continue with twice a day for another 2 months and then return to clinic in 2 months with CBC and iron studies and calcium level as her CMP showed mildly elevated calcium, patient on multivitamin which contain calcium so she was advised to stop it, a follow-up was labs shows persistent hypercalcemia, will consider work-up. As for the mild leukocytosis is concerned , now resolved, will continue to monitor Signed By: Zach Kaufman M.D. <<Signature on File>>
== END 2021-01-14 12:45 | disposition home or self-care (01) ==
LOC: ONCMED 12:48
PROVIDERS: PCP Nurse Practitioner Family; Visit Provider Internal Medicine Hematology & Oncology
DX: D50.9 Iron deficiency anemia, unspecified (principal); E11.41 Type 2 diabetes mellitus with diabetic mononeuropathy; N28.9 Disorder of kidney and ureter, unspecified; E83.52 Hypercalcemia; Z99.81 Dependence on supplemental oxygen
CPT/HCPCS: 80053; 82728; 83540; 83550; 85025; 99214

== ENCOUNTER 2021-03-15 08:10 | Outpatient (CLI) | payer MEDICARE, OTHER, SELFPAY ==
[2021-03-15 08:39] LABS: Basophils # 0.1 10^3/uL (0.0-0.1); Basophils % 0.6 %; Eosinophils # 0.2 10^3/uL (0.0-0.8); Eosinophils % 2.4 %; Hematocrit 41.9 % (37.0-47.0); Hemoglobin 12.7 g/dL (11.5-15.3); Lymphocytes # 2.1 10^3/uL (0.8-4.8); Mean Corpuscular HGB Conc 30.3 g/dL (30.0-36.0); Mean Corpuscular Hemoglobin 29.5 pg (28.0-34.0); Mean Corpuscular Volume 97.2 fL (81-99); Mean Platelet Volume 9.6 fL (7.4-10.4); Monocytes % 10.1 %; Neutrophils # 6.47 10^3/uL (1.8-7.7); Neutrophils % 65.3 %; Nucleated Red Blood Cells % 0 %; Platelet Count 220 10^3/cmm (130-400); Red Blood Count 4.31 10^6/uL (4.1-5.3); Red Cell Distribution Width 14.5 % (12.1-15.1); White Blood Count 9.9 10^3/uL (4.0-10.0)
[2021-03-15 09:00] LABS: Calcium 9.5 mg/dL (8.5-10.5)
[2021-03-15 09:23] LABS: Iron 75 ug/dL (37-145); Percent Saturation 20.3 % (20-50); Total Iron Binding Capacity 369 mcg/dl; Unsaturated Iron Binding 294 ug/dL (112-347)
--- NOTE | 2021-03-15 10:19 | ONC FU_ITS ---
Dr. Kaufman follow up note Patient: Martha Bee Unit #: [id number]: 1950 Dicatated By: Zach Kaufman M.D.Date of Visit:March 15, 2021 Onc Med Follow-up/Prog Note History of Present Illness: Ms. Bee is a 70-year-old female with history of anemia diagnosed in 1972. She reports that at that time, she was found to have low B12. She was given B12 supplement and with that her anemia did resolve. In 1975 she underwent abdominal exploratory surgery for abdominal pain at [place]. She reports that she was given a blood transfusion that time. Since then, she does not report any history of anemia until June 14, 2020. She went to see her PMD with progressive generalized weakness and fatigue. She states she initially thought it was due to diabetes but her lab work-up done on that day showed hemoglobin 9.5 g hematocrit 29.9 g with MCV 88.7 white blood count 9.4 and platelets 263,000 iron studies were done which showed iron saturation 12% and total iron 44, both were low and ferritin was 49 TIBC 360 and her creatinine was 1.10. On diagnosis, Mrs Bee denied any jaundice, urine or stool color changes, melena or hematochezia, hemoptysis or hematemesis. She also denied any night sweats, peripheral lymphadenopathy or weight loss. Patient said she underwent follow-up colonoscopy about a year ago in [facility], as per patient it was unremarkable and never had a EGD done before. Mrs. Bee was seen on October 24, 2020 for iron deficiency anemia. Her iron saturation at that time was 12.7% and ferritin was 71 compared to 31 on August 20, 2020. She was on oral iron supplements at that time. Her hemoglobin had improved as well and she was tolerating oral iron well. Came for follow-up, denies any specific complaints except chronic arthritis, no melena or hematochezia, no nausea or vomiting, no diarrhea or constipation, no palpitation or shortness of breath at rest patient use home oxygen, tolerating oral iron well. Medications: Albuterol Sulfate 1 Puff(s) (of (2.5 mg/3ml) 0.083%) Nebulization solution Inhalation q 6 hours PRN, Aspirin 1 Tablet (of 81 mg) Tablet, enteric coated Oral daily, Brilinta 1 Tablet (of 90 mg) Oral b.i.d., Cholecalciferol 1 (1.25 mg ) Tablet Oral q 1 week, Coenzyme Q10 1 Capsule Oral daily, Furosemide 1 Tablet (of 40 mg) Oral daily, Gabapentin 1.5 Tablet (of 800 mg) Oral t.i.d., Glimepiride 1 Tablet (of 1 mg) Oral daily, Lantus 34 Units (of 100 Units/mL) Subcutaneous b.i.d., L-Cysteine 1 Tablet (of 500 mg) Oral daily, Lisinopril 0.5 Tablet (of 5 mg) Oral daily, Metoprolol Succinate ER 1 Tablet (of 25 mg) Tablet SR 24 HR Oral daily, Multivitamin 1 Tablet Oral daily, Rosuvastatin Calcium 1 Tablet (of 40 mg) Oral daily Allergies: No Known Allergies. Review of Systems: Review of Systems is not available for this patient. Vital Signs: Performed on March 15, 2021 09:50 Height - 62.00 in Weight - 176.4 lbs (LOW) BSA - 1.81 sq.m BMI - 32.26 (HIGH) Temperature - 97.4 F (LOW) Pulse - 86 /min Respiration - 18 /min BP - 146/74 mm(hg) (HIGH) O2 Sat - 95 % (LOW) Pain - 0 Performance Status: 0 - Fully active, able to carry on all predisease activities without restrictions. (ECOG) Physical Examination: ENMT - No mouth sores, no thrush, no jaundice, Respiratory - Lungs are clear to auscultation, Cardiovascular - Regular rate and rhythm of heart, Abdomen - Soft, bowel sounds present, Extremities - No visible edema or rash. Lab/Imaging: Test performed on Dec 12, 2020 11:14 Ferritin 37 ng/mL Iron 68 mcg/dL Iron Binding Capacity (TIBC) 384 mcg/dl % Iron Saturation 17.7 % UIBC 316 mcg/dL WBC 10.4 10 3/uL RBC 4.53 10 6/uL HGB 12.5 g/dL HCT 41.9 % MCV 92.5 fL MCH 27.6 pg MCHC 29.8 g/dL RDW 16.3 % Platelet Count 257 10 3/cmm MPV 9.1 fL Neutrophils 6.52 10 3/uL Lymphocytes 2.8 10 3/uL Monocytes 0.9 10 3/uL Eosinophils 0.2 10 3/uL Basophils 0.0 10 3/uL Neutrophil % 62.5 % Lymphocyte % 26.3 % Monocyte % 9.0 % Eosinophil % 1.5 % Basophils % 0.4 % NRBC % 0 % Impression: Iron deficiency anemia, other possibilities including, considering her age underlying myelodysplasia or anemia of chronic disease cannot be ruled out , Responded well to oral iron EGD colonoscopy done in [facility], as per patient was unremarkable History of B12 deficiency anemia diagnosed in 1972, as per patient with B12 supplement it did resolve History of blood transfusion during abdominal surgery in 1975. Diabetes mellitus Diabetic neuropathy involving lower extremities On home oxygen Mild renal insufficiency Plan: Discussed with patient regarding her labs white blood count 9.9 hemoglobin 12.7 hematocrit 41.9 platelets 220,000 iron studies shows iron saturation 20.3% iron 75, ferritin is pending Clinically, patient doing well with no new signs symptoms, follow-up labs shows hemoglobin in normal range, iron studies shows iron stores continue to improve on oral iron, which she is tolerating well, will continue with same and return to clinic in 3 months with CBC and iron studies Signed By: Zach Kaufman M.D. <<Signature on File>>
== END 2021-03-15 08:11 | disposition home or self-care (01) ==
LOC: ONCMED 08:14
PROVIDERS: PCP Nurse Practitioner Family; Visit Provider Internal Medicine Hematology & Oncology
DX: D50.9 Iron deficiency anemia, unspecified (principal); D51.9 Vitamin B12 deficiency anemia, unspecified; E11.42 Type 2 diabetes mellitus with diabetic polyneuropathy; E11.22 Type 2 diabetes mellitus with diabetic chronic kidney disease; N18.9 Chronic kidney disease, unspecified; Z99.81 Dependence on supplemental oxygen; Z79.899 Other long term (current) drug therapy
CPT/HCPCS: 82310; 83540; 83550; 85025; 99214

== ENCOUNTER → 2021-03-29 08:18 | Outpatient (BNVA) | payer MEDICARE, OTHER, SELFPAY | PROVIDERS: PCP Nurse Practitioner Family; Referring Provider Nurse Practitioner Family; Visit Provider Anesthesiology Pain Medicine | DX: M16.12 Unilateral primary osteoarthritis, left hip (principal); Z79.891 Long term (current) use of opiate analgesic | CPT/HCPCS: 99203 ==

== ENCOUNTER 2021-06-18 13:58 | Outpatient (CLI) | payer MEDICARE, OTHER, SELFPAY ==
[2021-06-18 14:45] LABS: Basophils % 0.3 %; Eosinophils # 0.2 10^3/uL (0.0-0.8); Eosinophils % 2.1 %; Hematocrit 41.6 % (37.0-47.0); Hemoglobin 12.6 g/dL (11.5-15.3); Lymphocytes # 2.2 10^3/uL (0.8-4.8); Lymphocytes % 24.4 %; Mean Corpuscular HGB Conc 30.3 g/dL (30.0-36.0); Mean Corpuscular Hemoglobin 29.6 pg (28.0-34.0); Mean Corpuscular Volume 97.7 fl (81-99); Mean Platelet Volume 9.4 fL (7.4-10.4); Monocytes # 0.8 10^3/uL (0.2-0.9); Monocytes % 8.4 %; Neutrophils # 5.83 10^3/uL (1.8-7.7); Nucleated Red Blood Cells % 0 %; Platelet Count 250 10^3/cmm (130-400); Red Blood Count 4.26 10^6/uL (4.1-5.3); Red Cell Distribution Width 15.2 % (12.1-15.1); White Blood Count 9.1 10^3/uL (4.0-10.0)
[2021-06-18 15:12] LABS: Ferritin 56 ng/mL (15-150); Iron 50 ug/dL (37-145); Percent Saturation 15.6 % (20-50); Total Iron Binding Capacity 319 mcg/dl; Unsaturated Iron Binding 269 ug/dL (112-347)
--- NOTE | 2021-06-18 17:19 | ONC FU_ITS ---
Dr. Kaufman follow up note Patient: Martha Bee Unit #: [id number]: 1950 Dicatated By: Zach Kaufman M.D.Date of Visit:Jun 18, 2021 Onc Med Follow-up/Prog Note History of Present Illness: Ms. Bee is a 70-year-old female with history of anemia diagnosed in 1972. She reports that at that time, she was found to have low B12. She was given B12 supplement and with that her anemia did resolve. In 1975 she underwent abdominal exploratory surgery for abdominal pain at [place]. She reports that she was given a blood transfusion that time. Since then, she does not report any history of anemia until June 14, 2020. She went to see her PMD with progressive generalized weakness and fatigue. She states she initially thought it was due to diabetes but her lab work-up done on that day showed hemoglobin 9.5 g hematocrit 29.9 g with MCV 88.7 white blood count 9.4 and platelets 263,000 iron studies were done which showed iron saturation 12% and total iron 44, both were low and ferritin was 49 TIBC 360 and her creatinine was 1.10. On diagnosis, Mrs Bee denied any jaundice, urine or stool color changes, melena or hematochezia, hemoptysis or hematemesis. She also denied any night sweats, peripheral lymphadenopathy or weight loss. Patient said she underwent follow-up colonoscopy about a year ago in [facility], as per patient it was unremarkable and never had a EGD done before. Mrs. Bee was seen on October 24, 2020 for iron deficiency anemia. Her iron saturation at that time was 12.7% and ferritin was 71 compared to 31 on August 20, 2020. She was on oral iron supplements at that time. Her hemoglobin had improved as well and she was tolerating oral iron well. Came for follow-up, denies any specific complaint except generalized weakness and fatigue, patient is on gabapentin for lower extremity neuropathy and also taking vitamin B6. And tolerating oral iron 1 tablet a day well. No melena or hematochezia, no hemoptysis hematemesis, no nausea or vomiting, no diarrhea constipation no fever chills, no chest pain or palpitation. Medications: Albuterol Sulfate 1 Puff(s) (of (2.5 mg/3ml) 0.083%) Nebulization solution Inhalation q 6 hours PRN, Aspirin 1 Tablet (of 81 mg) Tablet, enteric coated Oral daily, Brilinta 1 Tablet (of 90 mg) Oral b.i.d., Cholecalciferol 1 (1.25 mg ) Tablet Oral q 1 week, Coenzyme Q10 1 Capsule Oral daily, Furosemide 1 Tablet (of 40 mg) Oral daily, Gabapentin 1.5 Tablet (of 800 mg) Oral t.i.d., Glimepiride 1 Tablet (of 1 mg) Oral daily, Lantus 34 Units (of 100 Units/mL) Subcutaneous b.i.d., L-Cysteine 1 Tablet (of 500 mg) Oral daily, Lisinopril 0.5 Tablet (of 5 mg) Oral daily, Metoprolol Succinate ER 1 Tablet (of 25 mg) Tablet SR 24 HR Oral daily, Multivitamin 1 Tablet Oral daily, Rosuvastatin Calcium 1 Tablet (of 40 mg) Oral daily Allergies: No Known Allergies. Review of Systems: Review of Systems is not available for this patient. Vital Signs: Performed on Jun 18, 2021 16:57 Height - 62.00 in Weight - 173.2 lbs (LOW) BSA - 1.80 sq.m BMI - 31.68 (HIGH) Temperature - 97.6 F (LOW) Pulse - 62 /min Respiration - 18 /min BP - 119/64 mm(hg) O2 Sat - 94 % (LOW) Pain - 0 Fatigue - 7 Performance Status: 1 - No physically strenuous activity, but ambulatory and able to carry out light or sedentary work (e.g. office work, light house work). (ECOG) Physical Examination: ENMT - No mouth sores, no thrush, no jaundice, Respiratory - Poor air entry otherwise clear, Cardiovascular - Regular rate and rhythm of heart, Abdomen - Soft, bowel sounds present, Extremities - No visible edema. Lab/Imaging: Most recent lab results are not available for this patient. Impression: Iron deficiency anemia, other possibilities including, considering her age underlying myelodysplasia or anemia of chronic disease cannot be ruled out , Responded well to oral iron EGD colonoscopy done in [facility], as per patient was unremarkable History of B12 deficiency anemia diagnosed in 1972, as per patient with B12 supplement it did resolve History of blood transfusion during abdominal surgery in 1975. Diabetes mellitus Diabetic neuropathy involving lower extremities Sleep apnea, on CPAP machine/On home oxygen Mild renal insufficiency Plan: Discussed with patient regarding her labs white blood count 9.1 hemoglobin 12.6 hematocrit 41.6 platelets 250,000 iron studies shows iron saturation 15.6% compared to 20.3% previously ferritin 56 iron 50 TIBC 319 Clinically, patient is done well her follow-up labs shows hemoglobin normal range but there is continued drop in her iron stores, patient is on oral iron 1 tablet a day, at this point will increase her oral iron dose to 2 tablets a day and then return to clinic in 3 months with CBC and iron studies. As for generalized weakness and fatigue is concerned probably multifactorial including due to gabapentin, patient will discuss with her PMD regarding dose adjustment if possible, which may improve her generalized weakness and fatigue. Signed By: Zach Kaufman M.D. <<Signature on File>>
== END 2021-06-18 13:59 | disposition home or self-care (01) ==
LOC: ONCMED 14:00
PROVIDERS: PCP Nurse Practitioner Family; Visit Provider Internal Medicine Hematology & Oncology
DX: D50.9 Iron deficiency anemia, unspecified (principal); R53.1 Weakness; R53.81 Other malaise; Z79.899 Other long term (current) drug therapy; Z79.82 Long term (current) use of aspirin
CPT/HCPCS: 36415; 82728; 83540; 83550; 85025; 99214

== ENCOUNTER 2021-09-17 13:18 | Outpatient (CLI) | payer MEDICARE, OTHER, SELFPAY ==
[2021-09-17 14:22] LABS: Basophils % 0.4 %; Eosinophils # 0.2 10^3/uL (0.0-0.8); Eosinophils % 1.6 %; Hematocrit 40.4 % (37.0-47.0); Hemoglobin 12.7 g/dL (11.5-15.3); Lymphocytes # 1.7 10^3/uL (0.8-4.8); Lymphocytes % 16.5 %; Mean Corpuscular HGB Conc 31.4 g/dL (30.0-36.0); Mean Corpuscular Hemoglobin 29.8 pg (28.0-34.0); Mean Corpuscular Volume 94.8 fl (81-99); Mean Platelet Volume 9.5 fL (7.4-10.4); Monocytes # 0.9 10^3/uL (0.2-0.9); Monocytes % 8.6 %; Neutrophils # 7.55 10^3/uL (1.8-7.7); Neutrophils % 72.4 %; Nucleated Red Blood Cells % 0 %; Platelet Count 231 10^3/cmm (130-400); Red Blood Count 4.26 10^6/uL (4.1-5.3); Red Cell Distribution Width 14.6 % (12.1-15.1); White Blood Count 10.4 10^3/uL (4.0-10.0)
[2021-09-17 14:41] LABS: Ferritin 55 ng/mL (15-150); Iron 49 ug/dL (37-145); Percent Saturation 15.3 % (20-50); Total Iron Binding Capacity 319 mcg/dl; Unsaturated Iron Binding 270 ug/dL (112-347)
--- NOTE | 2021-09-17 15:28 | ONC FU_ITS ---
Dr. Kaufman follow up note Patient: Martha Bee Unit #: [id number]: 1950 Dicatated By: Zach Kaufman M.D.Date of Visit:Sep 17, 2021 Onc Med Follow-up/Prog Note History of Present Illness: Ms. Bee is a 71-year-old female with history of anemia diagnosed in 1972. She reports that at that time, she was found to have low B12. She was given B12 supplement and with that her anemia did resolve. In 1975 she underwent abdominal exploratory surgery for abdominal pain at [place]. She reports that she was given a blood transfusion that time. Since then, she does not report any history of anemia until June 14, 2020. She went to see her PMD with progressive generalized weakness and fatigue. She states she initially thought it was due to diabetes but her lab work-up done on that day showed hemoglobin 9.5 g hematocrit 29.9 g with MCV 88.7 white blood count 9.4 and platelets 263,000 iron studies were done which showed iron saturation 12% and total iron 44, both were low and ferritin was 49 TIBC 360 and her creatinine was 1.10. On diagnosis, Mrs Bee denied any jaundice, urine or stool color changes, melena or hematochezia, hemoptysis or hematemesis. She also denied any night sweats, peripheral lymphadenopathy or weight loss. Patient said she underwent follow-up colonoscopy about a year ago in [facility], as per patient it was unremarkable and never had a EGD done before. Mrs. Bee was seen on October 24, 2020 for iron deficiency anemia. Her iron saturation at that time was 12.7% and ferritin was 71 compared to 31 on August 20, 2020. She was on oral iron supplements at that time. Her hemoglobin had improved as well and she was tolerating oral iron well. Came for follow-up, denies any specific complaint except generalized weakness and fatigue but no melena or hematochezia, no hemoptysis or hematemesis, since her last visit she underwent cataract surgery in both eyes, now recovering. No hemoptysis or hematemesis, no dysuria or hematuria, no jaundice, no shortness of breath or palpitation at rest. Tolerating oral iron twice a day well except off and on indigestion Medications: Albuterol Sulfate 1 Puff(s) (of (2.5 mg/3ml) 0.083%) Nebulization solution Inhalation q 6 hours PRN, Aspirin 1 Tablet (of 81 mg) Tablet, enteric coated Oral daily, Brilinta 1 Tablet (of 90 mg) Oral b.i.d., Cholecalciferol 1 (1.25 mg ) Tablet Oral q 1 week, Coenzyme Q10 1 Capsule Oral daily, Furosemide 1 Tablet (of 40 mg) Oral daily, Gabapentin 1.5 Tablet (of 800 mg) Oral t.i.d., Glimepiride 1 Tablet (of 1 mg) Oral daily, Lantus 34 Units (of 100 Units/mL) Subcutaneous b.i.d., L-Cysteine 1 Tablet (of 500 mg) Oral daily, Lisinopril 0.5 Tablet (of 5 mg) Oral daily, Metoprolol Succinate ER 1 Tablet (of 25 mg) Tablet SR 24 HR Oral daily, Multivitamin 1 Tablet Oral daily, Rosuvastatin Calcium 1 Tablet (of 40 mg) Oral daily Allergies: No Known Allergies. Review of Systems: Review of Systems is not available for this patient. Vital Signs: Vitals are not available for this patient. Performance Status: 1 - No physically strenuous activity, but ambulatory and able to carry out light or sedentary work (e.g. office work, light house work). (ECOG) Physical Examination: ENMT - No mouth sores, no thrush, no jaundice, Respiratory - Lungs are clear to auscultation, Cardiovascular - Regular rate and rhythm of heart, Abdomen - Soft, bowel sounds present, Extremities - No visible edema. Lab/Imaging: Most recent lab results are not available for this patient. Impression: Iron deficiency anemia, other possibilities including, considering her age underlying myelodysplasia or anemia of chronic disease cannot be ruled out , Responded well to oral iron EGD colonoscopy done in [facility], as per patient was unremarkable History of B12 deficiency anemia diagnosed in 1972, as per patient with B12 supplement it did resolve History of blood transfusion during abdominal surgery in 1975. Diabetes mellitus Diabetic neuropathy involving lower extremities Sleep apnea, on CPAP machine/On home oxygen Mild renal insufficiency Plan: Discussed with patient regarding her labs white blood count 10.4 hemoglobin 12.7 hematocrit 40.4 platelets 231,000 iron studies shows iron saturation 15.3% iron 49 ferritin 55 compared to 56 previously Clinically, patient is doing reasonably well, tolerating oral iron well but with expected side effect e.g. mild upper GI symptoms her follow-up lab work-up shows hemoglobin normal range but persistent iron deficiency, iron saturation is 15.3%, patient was advised to try oral iron 2 tablets in the morning before breakfast with vitamin C or lemon in the water, for better absorption and then return to clinic in 1 month with CBC and iron studies, if there is no improvement in her iron stores, may consider parenteral iron as persistent iron deficiency can cause generalized weakness and fatigue Signed By: Zach Kaufman M.D. <<Signature on File>>
== END 2021-09-17 13:19 | disposition home or self-care (01) ==
LOC: ONCMED 13:20
PROVIDERS: PCP Nurse Practitioner Family; Visit Provider Internal Medicine Hematology & Oncology
DX: D50.9 Iron deficiency anemia, unspecified (principal); E11.42 Type 2 diabetes mellitus with diabetic polyneuropathy; G47.30 Sleep apnea, unspecified; Z99.81 Dependence on supplemental oxygen; N28.9 Disorder of kidney and ureter, unspecified; Z79.899 Other long term (current) drug therapy
CPT/HCPCS: 36415; 82728; 83540; 83550; 85025; 99214

== ENCOUNTER 2021-10-21 13:19 | Outpatient (CLI) | payer MEDICARE, SELFPAY ==
[2021-10-21 13:54] LABS: Basophils % 0.4 %; Eosinophils # 0.2 10^3/uL (0.0-0.8); Eosinophils % 2.3 %; Hematocrit 43.7 % (37.0-47.0); Hemoglobin 13.6 g/dL (11.5-15.3); Lymphocytes # 1.9 10^3/uL (0.8-4.8); Lymphocytes % 27.7 %; Mean Corpuscular HGB Conc 31.1 g/dL (30.0-36.0); Mean Corpuscular Hemoglobin 30.6 pg (28.0-34.0); Mean Corpuscular Volume 98.4 fl (81-99); Mean Platelet Volume 8.7 fL (7.4-10.4); Monocytes # 0.7 10^3/uL (0.2-0.9); Monocytes % 10.1 %; Neutrophils # 4.11 10^3/uL (1.8-7.7); Neutrophils % 59.1 %; Nucleated Red Blood Cells % 0 %; Platelet Count 186 10^3/cmm (130-400); Red Blood Count 4.44 10^6/uL (4.1-5.3); Red Cell Distribution Width 15.4 % (12.1-15.1)
[2021-10-21 14:16] LABS: Ferritin 94 ng/mL (15-150); Iron 33 ug/dL (37-145); Percent Saturation 12.7 % (20-50); Total Iron Binding Capacity 258 mcg/dl; Unsaturated Iron Binding 225 ug/dL (112-347)
--- NOTE | 2021-10-21 16:02 | ONC FU_ITS ---
Dr. Kaufman follow up note Patient: Martha Bee Unit #: [id number]: 1950 Dicatated By: Zach Kaufman M.D.Date of Visit:Oct 21, 2021 Onc Med Follow-up/Prog Note History of Present Illness: Ms. Bee is a 71-year-old female with history of anemia diagnosed in 1972. She reports that at that time, she was found to have low B12. She was given B12 supplement and with that her anemia did resolve. In 1975 she underwent abdominal exploratory surgery for abdominal pain at [place]. She reports that she was given a blood transfusion that time. Since then, she does not report any history of anemia until June 14, 2020. She went to see her PMD with progressive generalized weakness and fatigue. She states she initially thought it was due to diabetes but her lab work-up done on that day showed hemoglobin 9.5 g hematocrit 29.9 g with MCV 88.7 white blood count 9.4 and platelets 263,000 iron studies were done which showed iron saturation 12% and total iron 44, both were low and ferritin was 49 TIBC 360 and her creatinine was 1.10. On diagnosis, Mrs Bee denied any jaundice, urine or stool color changes, melena or hematochezia, hemoptysis or hematemesis. She also denied any night sweats, peripheral lymphadenopathy or weight loss. Patient said she underwent follow-up colonoscopy about a year ago in [facility], as per patient it was unremarkable and never had a EGD done before. Mrs. Bee was seen on October 24, 2020 for iron deficiency anemia. Her iron saturation at that time was 12.7% and ferritin was 71 compared to 31 on August 20, 2020. She was on oral iron supplements at that time. Her hemoglobin had improved as well and she was tolerating oral iron well. Came for follow-up, denies any specific complaints, no fever chills, no nausea or vomiting, no diarrhea constipation, no melena hematochezia, tolerating oral iron well Medications: Albuterol Sulfate 1 Puff(s) (of (2.5 mg/3ml) 0.083%) Nebulization solution Inhalation q 6 hours PRN, Aspirin 1 Tablet (of 81 mg) Tablet, enteric coated Oral daily, Brilinta 1 Tablet (of 90 mg) Oral b.i.d., Cholecalciferol 1 (1.25 mg ) Tablet Oral q 1 week, Coenzyme Q10 1 Capsule Oral daily, Furosemide 1 Tablet (of 40 mg) Oral daily, Gabapentin 1.5 Tablet (of 800 mg) Oral t.i.d., Glimepiride 1 Tablet (of 1 mg) Oral daily, Lantus 34 Units (of 100 Units/mL) Subcutaneous b.i.d., L-Cysteine 1 Tablet (of 500 mg) Oral daily, Lisinopril 0.5 Tablet (of 5 mg) Oral daily, Metoprolol Succinate ER 1 Tablet (of 25 mg) Tablet SR 24 HR Oral daily, Multivitamin 1 Tablet Oral daily, Rosuvastatin Calcium 1 Tablet (of 40 mg) Oral daily Allergies: No Known Allergies. Review of Systems: Review of Systems is not available for this patient. Vital Signs: Performed on Oct 21, 2021 15:10 Height - 62.00 in Weight - 171.8 lbs (LOW) BSA - 1.79 sq.m BMI - 31.42 (HIGH) Temperature - 97.9 F (LOW) Pulse - 79 /min Respiration - 18 /min BP - 148/79 mm(hg) (HIGH) O2 Sat - 95 % (LOW) Pain - 0 Fatigue - 3 Performance Status: 0 - Fully active, able to carry on all predisease activities without restrictions. (ECOG) Physical Examination: ENMT - No mouth sores, no thrush, no jaundice, Respiratory - Poor air entry otherwise clear, Cardiovascular - Regular rate and rhythm of heart, Abdomen - Soft, bowel sounds present, Extremities - No visible edema. Lab/Imaging: Most recent lab results are not available for this patient. Impression: Iron deficiency anemia, other possibilities including, considering her age underlying myelodysplasia or anemia of chronic disease cannot be ruled out , Responded well to oral iron EGD colonoscopy done in [facility], as per patient was unremarkable History of B12 deficiency anemia diagnosed in 1972, as per patient with B12 supplement it did resolve History of blood transfusion during abdominal surgery in 1975. Diabetes mellitus Diabetic neuropathy involving lower extremities Sleep apnea, on CPAP machine/On home oxygen Mild renal insufficiency Plan: Discussed with patient regarding her labs white blood count 7 hemoglobin 13.6 medical 43.7 platelets 186,000 iron studies shows iron saturation 12.7% ferritin 94 compared to 55 previously iron 33 TIBC 258 Clinically, patient doing well with no new signs symptom, her follow-up labs shows improvement in her iron stores and hemoglobin normal range, will continue with oral iron 2 tablets p.o. daily and then she will return to clinic in 3 months with CBC and iron studies Signed By: Zach Kaufman M.D. <<Signature on File>>
== END 2021-10-21 13:20 | disposition home or self-care (01) ==
LOC: ONCMED 13:23
PROVIDERS: PCP Nurse Practitioner Family; Visit Provider Internal Medicine Hematology & Oncology
DX: D50.9 Iron deficiency anemia, unspecified (principal); E11.9 Type 2 diabetes mellitus without complications; G47.30 Sleep apnea, unspecified; N28.9 Disorder of kidney and ureter, unspecified
CPT/HCPCS: 36415; 82728; 83540; 83550; 85025; 99214

== ENCOUNTER 2022-01-24 10:01 | Outpatient (CLI) | payer MEDICARE, SELFPAY ==
[2022-01-24 10:27] LABS: Basophils % 0.4 %; Eosinophils # 0.2 10^3/uL (0.0-0.8); Eosinophils % 1.8 %; Hematocrit 44.4 % (37.0-47.0); Hemoglobin 13.7 g/dL (11.5-15.3); Lymphocytes # 2.2 10^3/uL (0.8-4.8); Lymphocytes % 24.1 %; Mean Corpuscular HGB Conc 30.9 g/dL (30.0-36.0); Mean Corpuscular Hemoglobin 31.4 pg (28.0-34.0); Mean Corpuscular Volume 101.6 fl (81-99); Mean Platelet Volume 9.1 fL (7.4-10.4); Monocytes # 0.8 10^3/uL (0.2-0.9); Monocytes % 9.1 %; Neutrophils # 5.78 10^3/uL (1.8-7.7); Neutrophils % 63.9 %; Nucleated Red Blood Cells % 0 %; Platelet Count 215 10^3/cmm (130-400); Red Blood Count 4.37 10^6/uL (4.1-5.3)
[2022-01-24 10:44] LABS: Ferritin 118 ng/mL (15-150); Iron 96 ug/dL (37-145); Percent Saturation 33.4 % (20-50); Total Iron Binding Capacity 287 mcg/dl; Unsaturated Iron Binding 191 ug/dL (112-347)
--- NOTE | 2022-01-24 12:08 | ONC FU_ITS ---
Dr. Kaufman follow up note Patient: Martha Bee Unit #: [id number]: 1950 Dicatated By: Zach Kaufman M.D.Date of Visit:Jan 24, 2022 Onc Med Follow-up/Prog Note History of Present Illness: Ms. Bee is a 72-year-old female with history of anemia diagnosed in 1972. She reports that at that time, she was found to have low B12. She was given B12 supplement and with that her anemia did resolve. In 1975 she underwent abdominal exploratory surgery for abdominal pain at [place]. She reports that she was given a blood transfusion that time. Since then, she does not report any history of anemia until June 14, 2020. She went to see her PMD with progressive generalized weakness and fatigue. She states she initially thought it was due to diabetes but her lab work-up done on that day showed hemoglobin 9.5 g hematocrit 29.9 g with MCV 88.7 white blood count 9.4 and platelets 263,000 iron studies were done which showed iron saturation 12% and total iron 44, both were low and ferritin was 49 TIBC 360 and her creatinine was 1.10. On diagnosis, Mrs Bee denied any jaundice, urine or stool color changes, melena or hematochezia, hemoptysis or hematemesis. She also denied any night sweats, peripheral lymphadenopathy or weight loss. Patient said she underwent follow-up colonoscopy about a year ago in [facility], Mrs. Bee was seen on October 24, 2020 for iron deficiency anemia. Her iron saturation at that time was 12.7% and ferritin was 71 compared to 31 on August 20, 2020. She was on oral iron supplements at that time. Her hemoglobin had improved as well and she was tolerating oral iron well. Came for follow-up, denies any specific complaints, no fever chills, no nausea or vomiting, no diarrhea or constipation, no melena or hematochezia, no hemoptysis hematemesis, no jaundice tolerating oral iron twice a day well Medications: Albuterol Sulfate 1 Puff(s) (of (2.5 mg/3ml) 0.083%) Nebulization solution Inhalation q 6 hours PRN, Aspirin 1 Tablet (of 81 mg) Tablet, enteric coated Oral daily, Cholecalciferol (1.25 mg ) Tablet Oral Take as Directed, Coenzyme Q10 1 Capsule Oral daily, [employer] Vitamin A 1 Tablet (of 2400 mcg ) Capsule Oral daily, Digestive Advantage Kids Tablet, chewable Oral Take as Directed, Farxiga 1 Tablet (of 10 mg) Oral daily, Furosemide 1 Tablet (of 40 mg) Oral daily, Gabapentin (800 mg) Tablet Oral Take as Directed, Glimepiride 1 Tablet (of 1 mg) Oral daily, Iron (Ferrous Sulfate) 2 Tablet (of 325 (65 fe) mg) Oral daily, Lantus 36 Unit(s) (of 100 Units/mL) Subcutaneous b.i.d., Lisinopril 0.5 Tablet (of 5 mg) Oral daily, Lotemax SM Gel (jelly) Ophthalmic daily for 30 days, MagOx 400 1 Tablet (of 400 (241.3 mg) mg) Oral daily, Metoprolol Succinate ER 1 Tablet (of 25 mg) Tablet SR 24 HR Oral daily, Refresh (1.4-0.6 %) Solution Ophthalmic Take as Directed, Rosuvastatin Calcium 1 Tablet (of 40 mg) Oral daily Allergies: No Known Allergies. Review of Systems: Review of Systems is not available for this patient. Vital Signs: Performed on Jan 24, 2022 11:22 Height - 62.00 in Weight - 175.8 lbs (HIGH) BSA - 1.81 sq.m BMI - 32.15 (HIGH) Temperature - 97.0 F (LOW) Pulse - 83 /min Respiration - 18 /min BP - 144/77 mm(hg) (HIGH) O2 Sat - 94 % (LOW) Pain - 10 Fatigue - 10 Performance Status: 1 - No physically strenuous activity, but ambulatory and able to carry out light or sedentary work (e.g. office work, light house work). (ECOG) Physical Examination: ENMT - No mouth sores, no thrush, no jaundice, Respiratory - Poor air entry otherwise clear, Cardiovascular - Regular rate and rhythm of heart, Abdomen - Soft, bowel sounds present, Extremities - No visible edema. Lab/Imaging: Most recent lab results are not available for this patient. Impression: Iron deficiency anemia, other possibilities including, considering her age underlying myelodysplasia or anemia of chronic disease cannot be ruled out , Responded well to oral iron EGD colonoscopy done in [facility], as per patient was unremarkable History of B12 deficiency anemia diagnosed in 1972, as per patient with B12 supplement it did resolve History of blood transfusion during abdominal surgery in 1975. Diabetes mellitus Diabetic neuropathy involving lower extremities Sleep apnea, on CPAP machine/On home oxygen Mild renal insufficiency Plan: Discussed with patient regarding her labs white blood count 9 hemoglobin 13.7 hematocrit 44.4 platelets 215,000 iron studies shows iron saturation 33.4% compared to 12.7% previously ferritin 118, iron 96, TIBC 287 Clinically, patient doing well with no new signs symptoms or follow-up lab work-up shows resolution of iron deficiency anemia and adequate iron stores on oral iron, at this point we will reduce her oral iron to once a day, patient will Continue to follow up with her PMD on regular basis and we will see her on as-needed basis. Signed By: Zach Kaufman M.D. <<Signature on File>>
== END 2022-01-24 10:02 | disposition home or self-care (01) ==
LOC: ONCMED 10:08
PROVIDERS: PCP Nurse Practitioner Family; Visit Provider Internal Medicine Hematology & Oncology
DX: D50.9 Iron deficiency anemia, unspecified (principal); E11.40 Type 2 diabetes mellitus with diabetic neuropathy, unspecified; N28.9 Disorder of kidney and ureter, unspecified; G47.33 Obstructive sleep apnea (adult) (pediatric); Z79.899 Other long term (current) drug therapy
CPT/HCPCS: 36415; 82728; 83540; 83550; 85025; 99214